=== PATIENT | female | born 1960 | race Two or more races ===

== ENCOUNTER 2016-12-12 09:46 | Day surgery (SDC) | payer OTHER ==
[~2016-12-12] VITALS: Ht 157.5 cm; Wt 104.0 kg
[2016-12-12 10:23] VITALS: Ht 157.5 cm; Wt 104.0 kg
[2016-12-12] MEDS ORDERED: ASTHMA INHALER (10:25)
[2016-12-12 10:39] VITALS: BP 131/67; PULSE 67; RESP 18
[2016-12-12] MEDS ORDERED: PROPOFOL 20 ML ONE (11:27)
[2016-12-12] MEDS ORDERED: LIDOCAINE 2% (SDV) 5 ML INJ ONE (11:27)
--- NOTE | 2016-12-12 12:16 | OPPN ---
Date/Time of Note Date/Time of Note DATE: 12/12/16 TIME: 12:14 Operative Report Preoperative Diagnosis Change in bowel habit History of colon polyp Postoperative Diagnosis Flat polyp, colon at 50 cm from the anus and it was removed in pieces using the snare and electrocautery and biopsy forceps 9 small sigmoid colon polyp was removed with biopsy forceps Internal hemorrhoids Poor prep making the exam very inadequate Operation/Procedure Performed Colonoscopy biopsy and polypectomy Surgeon see signature line addictions counselor assistant None Anesthesia: MAC Estimated blood loss: none Transfusion Required none Specimen Sigmoid polyps Grafts/Implants none Complications none LYNDON MAZARIEGOS MD Dec 12, 2016 12:16
--- NOTE | 2016-12-12 15:33 | GILP ---
DATE OF PROCEDURE: NAME OF PROCEDURES: Colonoscopy, biopsy and polypectomy. SURGEON: Dimitry Cabrales MD PREOPERATIVE DIAGNOSES: 1. Change in the bowel habit. 2. History of colon polyps. POSTOPERATIVE DIAGNOSES 1. Colonoscopy all the way to the cecum. 2. Poor prep with scattered solid stool making the exam very inadequate. 3. Flat polyp in the sigmoid colon at 50 cm from the anus and part of it was removed using the snar e and electrocautery and the other part with biopsy forceps. 4. The area was previously tattooed with Charla ink. 5. Small sigmoid colon polyp was removed using the biopsy forceps. 6. Internal hemorrhoids. INDICATION FOR THE PROCEDURE: Ms. Dorcas Luz is a 56-year-old female patient who noticed a change in the bowel habit. She had a history of flat polyp in the sigmoid. The patient was scheduled for colonoscopy for further evaluation. The procedure and possible complications were well explained to the patient. The patient understood and consented to the procedure. DESCRIPTION OF PROCEDURE: Under the influence of anesthesia, the colonoscope was carefully introduc ed in the rectum and under direct vision it was advanced all the way to the cecum. FINDINGS: The patient had a very poor prep with scattered solid stool, mostly in the proximal part of the colon making the exam very inadequate. The area of the sigmoid colon where it was tattooed, the patient was noted to have residual flat polyp and part of it was removed using the snare and jayshree ctrocautery and the other part with biopsy forceps. Because of the flat nature of the polyp, comple te excision could not be done. The patient also had a small sigmoid colon polyp and it was removed using the biopsy forceps. She had internal hemorrhoids. She tolerated the procedure very well and there was no complication from the procedure. At the end of the procedures, she was awake with stable vital signs and she was discharged home to the care of her family. IMPRESSION: Please see postoperative diagnosis. PLAN: Await histopathology report. The timing for the next colonoscopy will be decided depending u sixto the biopsy report. Dictated By: DIMITRY MCKEON/ANNA Conf#: [id number] DID#: [id number]
== END 2016-12-12 15:16 | disposition home or self-care (01) ==
LOC: GIL 09:46
PROVIDERS: ATTEND Internal Medicine Gastroenterology
DX: D12.5 Benign neoplasm of sigmoid colon (principal); K64.8 Other hemorrhoids; J45.909 Unspecified asthma, uncomplicated; E66.9 Obesity, unspecified; Z68.41 Body mass index [BMI] 40.0-44.9, adult
CPT/HCPCS: 45380; 45381; 45385; 88305; Z7610